=== PATIENT | male | born 1965 | race Caucasian/White ===

== ENCOUNTER 2018-12-13 15:45 | Emergency (ER) | payer MEDICAID ==
[~2018-12-13] VITALS: Ht 332.7 cm; Wt 93.2 kg
[~2018-12-13 15:45] MED LIST: ARIP10TA9 PO; ASPI81TA52 PO; CARB200T40 PO; HYDR50CA5 PO; LEVO200T PO
--- NOTE | 2018-12-13 16:10 | NUR ---
Pt was brought from triage to bed 24. Pt belongings and currently being orientated to room and policies. Pt changing into green scrubs and giving a urine sample as well.
[2018-12-13] MEDS ORDERED: BUSP10TA11 PO (16:58)
[2018-12-13] MEDS ORDERED: ARIP30TA7 PO (16:58)
[2018-12-13] MEDS ORDERED: SERT50TA PO (16:58)
[2018-12-13] MEDS ORDERED: LEVO125T PO (16:58)
[2018-12-13 17:06] LABS: CLARITY,URINE CLEAR (Clear); COLOR,URINE YELLOW (Yellow); GLUCOSE, URINE NEGATIVE (Neg); KETONES,URINE NEGATIVE (Neg); LEUKOCYTE ESTERASE ,URINE NEGATIVE (Neg); NITRITES, URINE NEGATIVE (Neg); OCCULT BLOOD,URINE NEGATIVE (Neg); PH,URINE 5.5 (4.8-8.0); PROTEIN,URINE NEGATIVE (Neg); UROBILINOGEN,URINE 0.2 E.U/dL (0.2-1.0)
[2018-12-13 17:12] LABS: UA COLLECTION TYPE CLN CATCH MIDSTREAM
[2018-12-13 17:19] LABS: BASOPHILS # (AUTO) 0.1 X10'3 (0-0.2); BASOPHILS % (AUTO) 1.2 % (0-1); EOSINOPHILS # (AUTO) 0.2 X10'3 (0-0.9); EOSINOPHILS % (AUTO) 1.7 % (0-6); HEMATOCRIT 43.7 % (42.0-52.0); HEMOGLOBIN 15.1 g/dl (14.0-17.9); LYMPHOCYTES # (AUTO) 3.4 X10'3 (1.1-4.8); LYMPHOCYTES % (AUTO) 32.4 % (21-51); MEAN CORPUSCULAR HEMOGLOBIN 31.8 PG (27.0-31.0); MEAN CORPUSCULAR HGB CONC 34.6 g/dL (33.0-36.5); MEAN PLATELET VOLUME 8.7 FL (7.4-10.4); MONOCYTES # (AUTO) 0.9 X10'3 (0-0.9); MONOCYTES % (AUTO) 8.3 % (2-12); NEUTROPHILS # (AUTO) 5.9 X10'3 (1.8-7.7); NEUTROPHILS % (AUTO) 56.4 % (42-75); PLATELET COUNT 208 X10'3 (140-440); RED BLOOD COUNT 4.75 X10'6 (4.70-6.10); RED CELL DISTRIBUTION WIDTH 13.7 % (11.5-14.5); WHITE BLOOD COUNT 10.5 X10'3 (4.5-11.0)
[2018-12-13 17:20] LABS: URINE AMPHETAMINE SCREEN NEGATIVE (Neg); URINE BARBITUATE SCREEN NEGATIVE (Neg); URINE BENZODIAZEPINES SCREEN NEGATIVE (Neg); URINE CANNABINOID SCREEN NEGATIVE (Neg); URINE COCAINE SCREEN NEGATIVE (Neg); URINE METHADONE SCREEN NEGATIVE (Neg); URINE OPIATE SCREEN NEGATIVE (Neg); URINE PHENCYCLIDINE SCREEN NEGATIVE (Neg)
[2018-12-13 17:38] LABS: ALANINE AMINOTRANSFERASE 27 U/L (12-78); ALBUMIN 3.9 G/DL (3.4-5.0); ALBUMIN/GLOBULIN RATIO 1.1 (1.1-1.5); ALKALINE PHOSPHATASE 84 IU/L (46-116); ANION GAP 6 (8-16); ASPARTATE AMINO TRANSFERASE 52 U/L (10-37); BILIRUBIN,TOTAL 0.7 MG/DL (0.1-1.0); BLOOD UREA NITROGEN 10 MG/DL (7-18); BUN/CREATININE RATIO 8.8 (5.4-32.0); CALCIUM 8.9 MG/DL (8.5-10.1); CHLORIDE 105 MMOL/L (99-107); CREATININE 1.13 MG/DL (0.60-1.10); GLUCOSE 135 MG/DL (70-104); POTASSIUM 3.4 MMOL/L (3.5-5.1); SODIUM 139 MMOL/L (135-145); TOTAL CARBON DIOXIDE 28.3 MMOL/L (24-32); TOTAL PROTEIN 7.3 G/DL (6.4-8.2); eGFR 67 ML/MIN
--- NOTE | 2018-12-13 17:41 | NUR ---
Called CB to inform of new patient needing to be evaluated by [facility] for medication evaluation.
[2018-12-13 17:47] LABS: ETHANOL < 0.010 GM/DL (0.0-0.010)
[2018-12-13] MEDS ORDERED: LORazepam 1 MG tablet PO ONE (17:55)
--- NOTE | 2018-12-13 17:58 | NUR ---
PACKET FAXED TO [facility]
[2018-12-13] MEDS ORDERED: diphenhydrAMINE 25mg capsule PO ONE (18:45)
--- NOTE | 2018-12-13 18:46 | NUR ---
Rcvd report from Ankita PRO, assumed care. Pt states [facility] out of [facility] [place] after a 2 year stay, on Sunday. Prior to that he was at [facility] for 15mos. Pt thinks he lost his medications at the bus stop between the [facility] and transitional housing where he is now residing. Pt went to [facility] and was assisted by [facility] staff in obtaining a new Rx for meds but there was a problem w/the DOC and he was unable to get medications. He is hearing a voice he calls "Mulick" He states "this is going to sound crazy" and reports that when he woke up from a coma he began hearing "Mulick". Gabriel is supposed to harvest his blood for Mulicks leader "balah?". Pt explains that Mullizbet will get in trouble if he pt kills himself, so he is only supposed to cut in places he can't so that gabriel can collect his blood. Pt is here because he is fearful of cutting himself. He reports in the past he has cut off part of his forehead and he shows me a scar. He has also stabbed himself multiple times in the stomach and back of his legs in the past. Pt is pacing, but was able to calm himself and sit in his bed during assessment, but he is now standing at bedside and fearful of sitting on his bed. Pt reports hx of heroin and meth use, he is tox negative. Pt reports difficulty sleeping since he's had no meds, he is currently anxious despite receiving 2mg Ativan an hour ago. Thought processes is linear, gaurded, paranoid. Pt has multiple prior suicide attempts. Pt states Abilify is helpful w/the voice and he is hopeful to get on monthly shots of abilify.
[2018-12-13] MEDS: aripiprazole 5mg tablet PO SCH (20:21)
--- NOTE | 2018-12-13 20:27 | NUR ---
Pt woke from sleeping for evening meds, pt was disoriented momentarily, but med compliant. Pt requested to charge his ankle monitor. States he only needs to charge ankle monitor for an hour. Pt is resting comfortably.
--- NOTE | 2018-12-13 23:39 | NUR ---
Pt laying on right side, asleep, no s/s distress. rr even and unlabored.
--- NOTE | 2018-12-14 01:02 | NUR ---
Pt asleep. RR even and unlabored
--- NOTE | 2018-12-14 03:49 | NUR ---
Pt is laying on his right side asleep rr 14 even and unlabored no s/s distress.
--- NOTE | 2018-12-14 04:27 | NUR ---
Pt up using the bathroom.
--- NOTE | 2018-12-14 06:41 | NUR ---
Nursing Note: Pt up to restroom. Requested washcloth and towel, he had toothbrush and toothpaste. No S&S of distress, will continue to monitor.
[2018-12-14] MEDS: levoTHYROXINE 125mcg tablet PO SCH (07:17)
--- NOTE | 2018-12-14 07:20 | NUR ---
Nursing Note: Pt refused Zoloft and Buspar in the AM. He states that he takes these medications at night.
[2018-12-14] MEDS ORDERED: sertraline 50mg tablet PO SCH (08:00)
[2018-12-14] MEDS ORDERED: busPIRone 15mg tablet PO SCH ×2 (08:00→21:00)
--- NOTE | 2018-12-14 09:33 | NUR ---
Nursing Note: Pt up to the bathroom, now laying in bed. Mold Swabber for ankle cuff retrieved and placed behind nurses' station. No S&S of distress, respirations even and unlabored, will continue to monitor.
--- NOTE | 2018-12-14 11:25 | NUR ---
Nursing Note: Pt laying on L side, eyes closed, respirations even and unlabored, no S&S of distress, will continue to monitor.
[2018-12-14] MEDS ORDERED: LORazepam 1 MG tablet PO ONE (12:30)
--- NOTE | 2018-12-14 12:46 | NUR ---
Nursing Note: Pt has increasing auditory hallucinations and paranoia. Pt pacing. Notified Dr. Edgar. Pt very paranoid about taking Ativan, but finally agreed to take the medication. Will continue to monitor.
--- NOTE | 2018-12-14 14:37 | NUR ---
Nursing Note: Pt laying in bed with eyes closed, no S&S of distress, will continue to monitor
--- NOTE | 2018-12-14 15:29 | NUR ---
Nursing Note: Pt laying in bed on his L side, respirations even and unlabored, no S&S of distress, will continue to monitor.
--- NOTE | 2018-12-14 17:20 | NUR ---
Nursing Note: Pt evaluated by REJI Umanzor from [facility]. No S&S of distress, will continue to monitor.
[2018-12-14] MEDS ORDERED: OLANZapine 5mg rapidly disint. tablet PO PRN (18:25)
--- NOTE | 2018-12-14 18:50 | NUR ---
This patient is mid fowlers in bed. He is awake and well oriented. He admits to hearing voices, there is a history of command hallucinations. He states the voices tell him to stab himself in the legs. The patient ate his dinner. He was reported to exhibit some paranoia earlier on day shift. He denies S/I or H/I. This patient is cooperative with staff at this time. Q15 minute rounding will be done for patient safety. He is in direct view from the nursing station.
[2018-12-14] MEDS ORDERED: aripiprazole 400mg suspension ER syringe IM ONE (20:00)
--- NOTE | 2018-12-14 20:12 | NUR ---
Pt's ankle monitor chassis engineer removed after charging. Patient returned to sleep after inquiring about evening meds. RN informed of request.
--- NOTE | 2018-12-14 21:16 | NUR ---
Snack of sandwich and jello given with HS meds.
[2018-12-14] MEDS: aripiprazole 5mg tablet PO SCH (21:30)
[2018-12-14] MEDS: sertraline 50mg tablet PO SCH (21:30)
[2018-12-14] MEDS: busPIRone 15mg tablet PO SCH (21:31)
--- NOTE | 2018-12-15 00:30 | NUR ---
Patient is sleeping in his right side. He is in view from the nursing station. Q15 minute rounding being done for patient safety.
--- NOTE | 2018-12-15 04:18 | NUR ---
This patient continues to sleep quietly.
--- NOTE | 2018-12-15 05:10 | NUR ---
Patient is up to bathroom. Cooperative with staff. He states "I slept hard." VS taken. Back to sleep.
[2018-12-15] MEDS: busPIRone 15mg tablet PO SCH ×3 (10:29→20:03)
[2018-12-15] MEDS: levoTHYROXINE 125mcg tablet PO SCH (10:29)
[2018-12-15] MEDS ORDERED: LEVO200T PO (13:01)
--- NOTE | 2018-12-15 19:00 | NUR ---
Pt is cooperative with assessment, denies SI. Pt states he is having auditory hallucinations, but will not specify. He stands up frequently and paces. He eats his entire dinner tray and requests an extra sandwhich and juice, which is given to him.
[2018-12-15] MEDS: sertraline 50mg tablet PO SCH (20:01)
[2018-12-15] MEDS: aripiprazole 5mg tablet PO SCH (20:01)
--- NOTE | 2018-12-15 20:06 | NUR ---
Pt's ankle monitor key person removed after charging. Pt given HS meds, returned to resting comfortably on right side.
--- NOTE | 2018-12-15 21:07 | NUR ---
Pt was medication compliant at med pass. He states he is very tired and goes to sleep on his L side.
--- NOTE | 2018-12-16 01:00 | NUR ---
Pt asleep right side. RR 14, even and unlabored. No apparent distress @ this time.
--- NOTE | 2018-12-16 02:39 | NUR ---
Pt is resting in bed on R side. No signs or symptoms of distress observed.
[2018-12-16 05:30] VITALS: BP 121/78
--- NOTE | 2018-12-16 05:30 | NUR ---
Pt asleep on L side RR 18. No signs or symptoms of distress at this time.
--- NOTE | 2018-12-16 06:37 | NUR ---
RECEIVED REPORT FROM PATRICK AND ASSUMED CARE, PATIENT IS SLEEPING, RESPIRATIONS SPONTANEOUS, EVEN AND UNLABORED, NO S/S OF DISTRESS, DISCOMFORT OR AGIATION AT THIS TIME, WILL CONTINUE TO MONITOR PATIENTS STATUS AND COMPLETE ASSESSMENTS WHEN PATIENT AWAKE.
[2018-12-16] MEDS: levoTHYROXINE 100mcg tablet PO SCH ×2 (07:27→08:00)
--- NOTE | 2018-12-16 07:30 | NUR ---
Patient took Synthroid as ordered. Pt now up to bathroom to brush teeth. Denies needs at this time.
[2018-12-16] MEDS: busPIRone 15mg tablet PO SCH ×2 (07:58→13:00)
--- NOTE | 2018-12-16 08:00 | NUR ---
MEDICATED PT WITH MORNING DOSE OF BUSPAR PER ORDERS, PT STATES HE IS FEELING MUCH BETTER THIS MORNING, REPORTS DECREASED ANXIETY, PT IS SITTING UP EATING BREAKFAST TRAY AT THIS TIME, WILL COMPLETE ASSESSMENTS WHEN PT IS FINISHED WITH BREAKFAST.
--- NOTE | 2018-12-16 10:09 | NUR ---
DR MIRANDA NOTIFIED OF PT CHRONIC PAIN AND INTERMITTENT CONSTIPATION, RECEIVED VERBAL ORDER FOR ALEVE BID FOR PAIN, AND MIRILAX ONCE FOR CONSTIPATION.
[2018-12-16] MEDS ORDERED: naproxen sodium 220mg tablet PO SCH (10:12)
[2018-12-16] MEDS ORDERED: polyethylene glycol 3350 17gm powd pack PO SCH (10:13)
--- NOTE | 2018-12-16 11:47 | NUR ---
PT SLEEPING, RESPIRATIONS SPONTANEOUS, EVEN AND UNLABORED, NO S/S OF DISTRESS, DISCOMFORT OR AGITATION, PT IN LINE OF SITE OF NURSES STATION, VISUALIZED BY 2 SITTERS AND RN.
--- NOTE | 2018-12-16 14:15 | NUR ---
PT JUST LEFT WITH [facility] ACTIVITY THERAPIST TO [employer] FELIX DUCKWORTH, CALLED [phone] GAVE REPORT TO HALIMA AT NURSES STATION [facility], INFORMED HER OF ALL THE MEDICATIONS WE GAVE PT TODAY, WELL PT WILL NEED DOSE OF BUSPAR WHEN HE ARRIVES HE TAKES IT TID.
[2018-12-17] MEDS ORDERED: LEVO200T8 PO (09:23)
[2018-12-17] MEDS ORDERED: SERT50TA PO (09:33)
== END 2018-12-16 14:21 ==
LOC: ER 15:46
DX: F29 Unspecified psychosis not due to a substance or known physiological condition (principal); K21.9 Gastro-esophageal reflux disease without esophagitis; G89.29 Other chronic pain; F25.9 Schizoaffective disorder, unspecified; E11.9 Type 2 diabetes mellitus without complications; Z59.0 Homelessness; Z56.0 Unemployment, unspecified; Z88.0 Allergy status to penicillin; Z88.5 Allergy status to narcotic agent; Z88.8 Allergy status to other drugs, medicaments and biological substances; Z79.82 Long term (current) use of aspirin; Z79.899 Other long term (current) drug therapy
CPT/HCPCS: 36415; 80053; 80305; 80320; 81003; 84443; 85025; 96372; 99285; Q0163